=== PATIENT | female | born 1985 | race Caucasian/White ===

== ENCOUNTER 2018-05-03 23:54 | Observation (INO) | payer MEDICAID ==
[~2018-05-03] VITALS: Ht 162.6 cm; Wt 87.1 kg
[~2018-05-03 23:54] MED LIST: PREN-88 PO
[2018-05-04] MEDS ORDERED: TERBUTALINE SULFATE 1MG/ML VIAL SUBCUT ONE (01:15)
== END 2018-05-04 03:03 | disposition home or self-care (01) ==
LOC: L&D 23:54
PROVIDERS: ADMIT Obstetrics & Gynecology; ATTEND Obstetrics & Gynecology
DX: O26.893 Other specified pregnancy related conditions, third trimester (principal); R10.30 Lower abdominal pain, unspecified; Z3A.37 37 weeks gestation of pregnancy
CPT/HCPCS: 96372; G0378; J3105; 99281

== ENCOUNTER 2018-05-18 22:30 | Inpatient (IN) | payer MEDICAID ==
[~2018-05-18] VITALS: Ht 162.6 cm; Wt 90.3 kg
[2018-05-19] MEDS ORDERED: DEXT 5%/LR + PITOCIN 20UNITS/L 1,000 ML IV SCH ×2 (00:16→06:56)
[2018-05-19] MEDS ORDERED: LACTATED RINGERS 1,000 ML IV SCH ×3 (00:16→01:15)
[2018-05-19] MEDS ORDERED: NALOXONE HCL 0.4 MG/ML 1ML VIAL IM PRN (00:30)
[2018-05-19 01:34] LABS: BASOPHILS % 0.6 % (0.0-2.0); EOSINOPHILS % 0.4 % (0.0-5.0); HEMATOCRIT. 32.5 % (36.0-48.0); HEMOGLOBIN. 11.2 g/dL (12.0-16.0); LYMPHOCYTES % 18.6 % (20.0-50.0); MEAN CORPUSCULAR HEMOGLOBIN 32.1 pg (28.0-32.0); MEAN PLATELET VOLUME 10.1 fl (7.4-10.4); MONOCYTES % 6.6 % (2.0-8.0); NEUTROPHILS % 73.8 % (40.0-76.0); PLATELET 131 x1000/uL (130-400); RED CELL DISTRIBUTION WIDTH 15.2 % (11.6-14.6)
[2018-05-19 01:41] LABS: CLARITY URINE CLEAR (CLEAR); COLOR URINE DARK YELLOW (YELLOW); KETONES URINE 3+ (NEGATIVE); LEUKOCYTE ESTERASE URINE TRACE (NEGATIVE); NITRITE URINE NEGATIVE (NEGATIVE); OCCULT BLOOD URINE TRACE (NEGATIVE); PROTEIN URINE NEGATIVE (NEGATIVE); SPECIFIC GRAVITY URINE 1.029 (1.005-1.030)
[2018-05-19 01:41] LABS: PARTIAL THROMBOPLASTIN TIME 28.5 sec (23.4-31.0); PROTHROMBIN TIME 9.7 sec (9.1-11.1)
[2018-05-19 01:50] LABS: *COCAINE SCREEN URINE NEGATIVE (NEGATIVE); METHADONE URINE SCREEN NEGATIVE (NEGATIVE)
[2018-05-19 01:51] LABS: *AMPHETAMINES SCREEN URINE NEGATIVE (NEGATIVE); *BARBITURATES SCREEN URINE NEGATIVE (NEGATIVE); *BENZODIAZEPINES SCREEN URINE NEGATIVE (NEGATIVE); CANNABINOID URINE SCREEN NEGATIVE (NEGATIVE); OPIATES URINE SCREEN NEGATIVE (NEGATIVE); PHENCYCLIDINE URINE SCREEN NEGATIVE (NEGATIVE)
[2018-05-19 02:13] LABS: HEPATITIS B SURFACE ANTIGEN NEGATIVE
[2018-05-19] MEDS ORDERED: FENTANYL CITRATE/PF 50MCG/ML 2ML VIAL ONE (05:27)
[2018-05-19] MEDS ORDERED: MORPHINE SULFATE/PF 1MG/ML 10ML AMP ONE (05:27)
[2018-05-19] MEDS ORDERED: SODIUM CHLORIDE 0.9% 10ML VIAL ONE (05:29)
[2018-05-19] MEDS ORDERED: BUPIVACAINE HCL/DEXTROSE/PF 0.75% 2ML AMP INJ ONE (05:29)
[2018-05-19] MEDS ORDERED: OXYTOCIN 10 UNITS/ML 1ML ONE (05:29)
[2018-05-19] MEDS ORDERED: PHENYLEPHRINE HCL 10 MG/ML 1ML (IV VIAL) IV ONE (05:29)
[2018-05-19] MEDS ORDERED: GLYCOPYRROLATE 0.2 MG/ML 2ML VIAL ONE (05:29)
[2018-05-19] MEDS ORDERED: ONDANSETRON HCL 4MG/2ML INJ ONE (05:29)
[2018-05-19] MEDS ORDERED: EPHEDRINE SULFATE 50MG/ML VIAL ONE (05:29)
[2018-05-19] MEDS ORDERED: CEFAZOLIN 2000MG PREMIX 50 ML IV ONE (06:33)
[2018-05-19] MEDS ORDERED: INFLUENZA VIRUS VACCINE(AFLURIA) 0.5ML SYR IM ONE (07:00)
[2018-05-19] MEDS ORDERED: IBUPROFEN 400MG TABLET PO PRN (07:00)
[2018-05-19] MEDS ORDERED: ONDANSETRON HCL 4MG/2ML INJ IV PRN (07:00)
[2018-05-19] MEDS ORDERED: TETANUS, DIPHTHERIA, PERTUSSIS VAC/PF 0.5ML (>7YR OLD) IM ONE (07:00)
[2018-05-19] MEDS ORDERED: LANOLIN OINT 0.25 GM TUBE TOP PRN (07:00)
[2018-05-19] MEDS ORDERED: RHO(D) IMMUNE GLOBULIN 300 MCG/SYR IM PRN (07:00)
[2018-05-19] MEDS ORDERED: HYDROCODONE/ACETAMINOPHEN 5/325MG TABLET PO PRN (07:00)
[2018-05-19] MEDS ORDERED: DIPHENHYDRAMINE 50MG/ML VIAL ONE (07:01)
[2018-05-19] MEDS ORDERED: KETOROLAC 60MG/2ML VIAL IM ONE (07:17)
[2018-05-19] MEDS ORDERED: NALOXONE HCL 0.4 MG/ML 1ML VIAL IV PRN (07:45)
[2018-05-19] MEDS ORDERED: DIPHENHYDRAMINE 50MG/ML VIAL IV PRN (07:45)
[2018-05-19] MEDS ORDERED: BUTORPHANOL TARTRATE 2 MG/ML VIAL IV PRN (07:45)
[2018-05-19] MEDS ORDERED: BISACODYL 10MG SUPP PR PRN (09:00)
[2018-05-19 09:52] VITALS: BP 115/71
[2018-05-19 09:53] VITALS: BP 84/48
[2018-05-19 09:56] VITALS: BP 114/69
[2018-05-19 10:00] VITALS: BP 99/64
[2018-05-19] MEDS: KETOROLAC 30MG/ML VIAL IV PRN ×2 (11:34→17:35)
[2018-05-19] MEDS: SIMETHICONE 80MG TABLET CHEW PO SCH ×4 (12:45→21:17)
[2018-05-19] MEDS: PRENATAL VIT/FE FUMARATE/FA TABLET PO SCH (12:45)
[2018-05-19 17:25] VITALS: BP 106/68
[2018-05-19 20:26] VITALS: BP 98/58
[2018-05-19] MEDS ORDERED: DIPHENHYDRAMINE 25MG CAPSULE PO PRN (21:00)
[2018-05-19] MEDS: DOCUSATE SODIUM 100MG CAPSULE PO SCH (21:17)
[2018-05-19] MEDS: IBUPROFEN 800MG TABLET PO PRN (22:50)
[2018-05-20 04:05] VITALS: BP 99/52
[2018-05-20 05:24] LABS: BASOPHILS % 0.4 % (0.0-2.0); EOSINOPHILS % 0.6 % (0.0-5.0); HEMATOCRIT. 29.2 % (36.0-48.0); HEMOGLOBIN. 10.1 g/dL (12.0-16.0); LYMPHOCYTES % 10.3 % (20.0-50.0); MEAN CORPUSCULAR HEMOGLOBIN 32.2 pg (28.0-32.0); MEAN CORPUSCULAR VOLUME 93.6 fL (81.0-99.0); MEAN PLATELET VOLUME 9.8 fl (7.4-10.4); MONOCYTES % 8.1 % (2.0-8.0); NEUTROPHILS % 80.6 % (40.0-76.0); PLATELET 133 x1000/uL (130-400); RED BLOOD CELL COUNT 3.12 mill/uL (4.2-5.4); RED CELL DISTRIBUTION WIDTH 15.5 % (11.6-14.6)
[2018-05-20] MEDS: FERROUS SULFATE 325MG TABLET PO SCH ×2 (07:30→17:00)
[2018-05-20] MEDS: SIMETHICONE 80MG TABLET CHEW PO SCH ×3 (08:00→21:04)
[2018-05-20] MEDS: IBUPROFEN 800MG TABLET PO PRN ×3 (08:21→21:04)
[2018-05-20 09:00] VITALS: BP 97/55
[2018-05-20] MEDS: PRENATAL VIT/FE FUMARATE/FA TABLET PO SCH (09:00)
[2018-05-20 16:00] VITALS: BP 100/60
[2018-05-20 19:40] VITALS: BP 105/60
[2018-05-20] MEDS: DOCUSATE SODIUM 100MG CAPSULE PO SCH (21:03)
[2018-05-20] MEDS ORDERED: LORATADINE 10MG TABLET PO SCH (22:00)
[2018-05-20 23:24] VITALS: BP 103/62
[2018-05-21] MEDS: FERROUS SULFATE 325MG TABLET PO SCH ×3 (07:30→13:30)
[2018-05-21 08:00] VITALS: BP 107/63
[2018-05-21] MEDS: SIMETHICONE 80MG TABLET CHEW PO SCH ×3 (08:00→13:30)
[2018-05-21] MEDS: IBUPROFEN 800MG TABLET PO PRN ×2 (08:26→15:51)
[2018-05-21] MEDS: PRENATAL VIT/FE FUMARATE/FA TABLET PO SCH (08:26)
[2018-05-21 16:04] VITALS: BP 102/64
== END 2018-05-21 19:05 | disposition home or self-care (01) | DRG 540 ==
LOC: OBSVTOIN 22:30 → 8EST NSY 22:30 → 8 EST LDRP 22:50 → 8EST 05-19 09:40
PROVIDERS: ADMIT Specialist; ATTEND Obstetrics & Gynecology
PROC: 10D00Z1 Extraction of Products of Conception, Low, Open Approach (ICD-10-PCS; principal; 2018-05-19)
DX: O69.81X0 Labor and delivery complicated by cord around neck, without compression, not applicable or unspecified (principal); O40.3XX0 Polyhydramnios, third trimester, not applicable or unspecified; D64.9 Anemia, unspecified; O99.03 Anemia complicating the puerperium; M54.9 Dorsalgia, unspecified; O99.89 Other specified diseases and conditions complicating pregnancy, childbirth and the puerperium; O36.63X0 Maternal care for excessive fetal growth, third trimester, not applicable or unspecified; Z37.0 Single live birth; Z3A.39 39 weeks gestation of pregnancy
CPT/HCPCS: 36415; 80305; 86592; 86703; 86762; 86850; 86900; 87340; 88307; 99281; G0378; J0595; J0690; J1200; J1885; J2274; J2370; J2405; J2590; J3010; J3490; J7120; A4315